=== PATIENT | female | born 1965 | race Caucasian/White ===

== ENCOUNTER 2018-02-11 12:18 | Emergency (ER) | payer OTHER | END 2018-02-11 13:48 | disposition home or self-care (01) | LOC: E/R 12:18 | DX: S32.10XA Unspecified fracture of sacrum, initial encounter for closed fracture (principal); W01.0XXA Fall on same level from slipping, tripping and stumbling without subsequent striking against object, initial encounter; Y92.9 Unspecified place or not applicable | CPT/HCPCS: 72100; 72220; 99283-25 ==

== ENCOUNTER 2018-02-15 19:47 | Emergency (ER) | payer OTHER | END 2018-02-15 23:40 | disposition home or self-care (01) | LOC: FTE 19:47 | DX: N63.10 Unspecified lump in the right breast, unspecified quadrant (principal); I10 Essential (primary) hypertension | CPT/HCPCS: 76642; 99284-25 ==